=== PATIENT | female | born 1960 | race Caucasian/White ===

== ENCOUNTER 2022-04-18 10:45 | Inpatient (IN) | payer MEDICAID ==
[~2022-04-18] VITALS: Ht 162.6 cm; Wt 98.0 kg
[2022-04-18 11:05] VITALS: BP 100/57
--- NOTE | 2022-04-18 11:11 | NUR ---
PT AMB TO BED 3.
[2022-04-18] MEDS ORDERED: NACL 0.9% 1,000 ML IV SCH (12:45)
[2022-04-18] MEDS ORDERED: KETOROLAC 30 MG/ML VIAL IVP ONE (12:45)
--- NOTE | 2022-04-18 13:26 | NUR ---
Pt to CT via [facility].
[2022-04-18 13:40] LABS: BASOPHILS # (AUTO) 0.1 K/uL (0.00-0.22); BASOPHILS % (AUTO) 0.3 % (0.0-2.0); EOSINOPHILS % (AUTO) 0.2 % (0.0-4.0); HEMATOCRIT 38.9 % (36-48); HEMOGLOBIN 13.3 g/dL (12.0-16.0); LYMPHOCYTES % (AUTO) 5.2 % (20.5-51.1); MEAN CORPUSCULAR HEMOGLOBIN 30 pg (27-31); MEAN CORPUSCULAR HGB CONC 34 g/dL (33-37); MEAN CORPUSCULAR VOLUME 87.4 fL (80-94); MONOCYTES # (AUTO) 0.9 K/uL (0.8-1.0); MONOCYTES % (AUTO) 4.5 % (1.7-9.3); NEUTROPHILS # (AUTO) 17.9 K/uL (1.8-7.7); NEUTROPHILS % (AUTO) 89.8 % (42.2-75.2); PLATELET COUNT (AUTO) 243 K/uL (140-450); RED BLOOD CELL COUNT(AUTO) 4.45 MIL/uL (4.20-5.40); RED CELL DISTRIBUTION WIDTH 13.4 % (11.6-13.7); WHITE BLOOD COUNT (AUTO) 19.9 K/uL (4.8-10.8)
[2022-04-18] MEDS ORDERED: metroNIDAZOLE 500 MG/NS PREMIX 100 ML IV ONE (14:20)
[2022-04-18] MEDS ORDERED: LEVOFLOXACIN 500 MG/D5W PREMIX 100 ML IV ONE (14:20)
[2022-04-18 14:44] LABS: APPEARANCE,URINE CLEAR (CLEAR); BILIRUBIN,URINE NEGATIVE (NEGATIVE); BLOOD, URINE 1+ (NEGATIVE); COLOR,URINE YELLOW (YELLOW); LEUKOCYTE ESTERASE ,URINE NEGATIVE (NEGATIVE); NITRITE, URINE NEGATIVE (NEGATIVE); UGLUCOSE NEGATIVE (NEGATIVE)
[2022-04-18 15:34] LABS: ALBUMIN 3.4 g/dL (3.4-5.0); ANION GAP 19.8 (8-16); CARBON DIOXIDE 18.6 mmol/L (21-32); CREATININE 0.9 mg/dL (0.6-1.3); POTASSIUM 3.4 mmol/L (3.5-5.1); TOTAL BILIRUBIN 0.6 mg/dL (0.0-1.0)
[2022-04-18] MEDS ORDERED: DEXT 5% /NACL 0.9% 1,000 ML IV ONE ×2 (16:00→16:35)
[2022-04-18] MEDS ORDERED: DOCUSATE SODIUM 100 MG GELCAP PO PRN (16:30)
[2022-04-18] MEDS ORDERED: MORPHINE SULFATE 2 MG/ML SYR IVP PRN (16:30)
[2022-04-18] MEDS ORDERED: ACETAMINOPHEN 325 MG TAB PO PRN (16:30)
[2022-04-18] MEDS ORDERED: ZOLPIDEM 5 MG TAB PO PRN (16:30)
[2022-04-18] MEDS ORDERED: guaiFENesin DM 200/20 MG-10 ML 10 ML UDC PO PRN (16:30)
[2022-04-18] MEDS ORDERED: NACL 0.9% 1,500 ML IV SCH (16:35)
[2022-04-18 16:40] LABS: RBC,URINE 0-5 /HPF (0-5); WBC,URINE NONE SEEN /HPF (0-5)
--- NOTE | 2022-04-18 16:56 | NUR ---
Note undone in [facility] - 04/18/22 at 1723 by [email or web address] Pt report given to SELMA AVILES. PATIENT TRANSFERRED TO ROOM 125 B. PATIENT IS AAOX4, NAD NOTED AT THIS TIME FLUIDS D5NS0.9 INFUSIN. PATIENT BELONGINGS ( CLOTHES WHITE PHOTOGRAPHIC LABORATORY SUPERVISOR HAVE BEEN PLACED IN A BELONGING BAG. PATIENT HAS HER RED CELL PHONE IN HAND. DANNA SON IS AT THE BEDSIDE Transfer of care at this time. Addendum: 04/18/22 at 1723 by [email or web address] Amendment undone in [facility] - 04/18/22 at 1723 by [email or web address] BEDSIDE REPORT GIVEN TO LAST AVILES
--- NOTE | 2022-04-18 16:56 | NUR ---
BEDSIDE REPORT GIVEN TO STEVE AVILES. PATIENT TRANSFERRED TO ROOM 125 B. PATIENT IS AAOX4, NAD NOTED AT THIS TIME FLUIDS D5NS0.9 INFUSING 100 ML/HR. PATIENT BELONGINGS ( CLOTHES WHITE DISTRIBUTION TRANSFORMER ASSEMBLER HAVE BEEN PLACED IN A BELONGING BAG). PATIENT HAS HER RED CELL PHONE IN HAND. PATIENT SON IS AT THE BEDSIDE TRANSFER OF CARE AT THIS TIME.
[2022-04-18 17:05] LABS: AMYLASE 32 U/L (25-115); CHOL/HDL RATIO 3.6 (1-4.5); FREE T4 (FREE THYROXINE) 1.29 ng/dL (0.76-1.46); HDL CHOLESTEROL 43 mg/dL (40-60); LDL (CALC) 94 mg/dL (60-100); LIPASE 44 U/L (73-393); MAGNESIUM 2.1 mg/dL (1.8-2.4); THYROID STIMULATING HORMONE 0.75 uIU/mL (0.34-3.74); TRIGLYCERIDES 94 mg/dL (30-150)
[2022-04-18 17:18] LABS: PROTHROMBIN TIME 10.6 secs (10.8-13.4)
--- NOTE | 2022-04-18 19:30 | NUR ---
RECEIVED REPORT FROM DAY SHIFT NURSE ADOLFO. PATIENT IS RESTING WATCHING TV, ON ROOM AIR. AMBULATORY. COMPLAINED OF ABDOMINAL PAIN, WILL MEDICATE AFTER REPORT. IV ACCESS ON THE RAC INTACT AND PATENT. CALL LIGHT WITHIN REACH. SAFETY MEASURES ARE IN PLACE.
[2022-04-18] MEDS: HYDROcodone/APAP 7.5/325 MG 1 TAB PO PRN (19:46)
[2022-04-18 20:00] VITALS: BP 107/69
[2022-04-19] VITALS: BP 100/62
--- NOTE | 2022-04-19 00:41 | NUR ---
PATIENT AWAKE ALERT VERBALLY RESPONSIVE. NO S/S OF RESPIRATORY DISTRESS. BREATHING NORMAL NON LABORED. CALL LIGHT WITHIN REACH. NO COMPLAINTS OF PAIN.
[2022-04-19 04:00] VITALS: BP 104/66
[2022-04-19 05:32] LABS: BASOPHILS % (AUTO) 0.2 % (0.0-2.0); EOSINOPHILS # (AUTO) 0.1 K/uL (0-0.4); EOSINOPHILS % (AUTO) 0.7 % (0.0-4.0); HEMATOCRIT 33.9 % (36-48); HEMOGLOBIN 11.5 g/dL (12.0-16.0); MEAN CORPUSCULAR HEMOGLOBIN 30 pg (27-31); MEAN CORPUSCULAR HGB CONC 34 g/dL (33-37); MEAN CORPUSCULAR VOLUME 88.1 fL (80-94); MONOCYTES # (AUTO) 0.9 K/uL (0.8-1.0); MONOCYTES % (AUTO) 6.9 % (1.7-9.3); NEUTROPHILS % (AUTO) 84.2 % (42.2-75.2); PLATELET COUNT (AUTO) 208 K/uL (140-450); RED BLOOD CELL COUNT(AUTO) 3.85 MIL/uL (4.20-5.40); RED CELL DISTRIBUTION WIDTH 13.4 % (11.6-13.7)
[2022-04-19 06:17] LABS: CARBON DIOXIDE 24.4 mmol/L (21-32); CREATININE 0.9 mg/dL (0.6-1.3); POTASSIUM 3.4 mmol/L (3.5-5.1)
--- NOTE | 2022-04-19 07:27 | NUR ---
PATIENT STABLE. ENDORSED PATIENT TO DAY SHIFT NURSE FOR CONTINUITY OF CARE.
--- NOTE | 2022-04-19 07:28 | NUR ---
RECEIVED REPORT FROM HYDROPULPER NURSE FOR CONTINUITY OF CARE. PATIENT LYING DOWN, AWAKE, PAIN WITHIN TOLERABLE. ROOM AIR, IV SITE INTACT, PATENT ON SALINE LOCK. REVIEWED PLAN OF CARE WITH PATIENT. VERBALIZED UNDERSTANDING. SAFETY MEASURES IN PLACE, CALL LIGHT WITHIN REACH. WILL CONTINUE TO MONITOR.
[2022-04-19 08:00] VITALS: BP 119/77
[2022-04-19 08:08] LABS: T4 (THYROXINE) 9.2 ug/dL (4.5-12.0)
[2022-04-19] MEDS: PANTOPRAZOLE 40 MG TABEC PO SCH (09:00)
[2022-04-19] MEDS: LEVOFLOXACIN 750 MG/D5W PREMIX 150 ML IV SCH (09:40)
[2022-04-19] MEDS: HYDROcodone/APAP 7.5/325 MG 1 TAB PO PRN ×2 (09:44→18:00)
--- NOTE | 2022-04-19 09:53 | NUR ---
COMPLAINS OF ABDOMINAL PAIN, NORCO PO PRN GIVEN AT THIS TIME. OTHER SCHEDULED MEDICATIONS DUE GIVEN. WILL CONTINUE TO MONITOR.
--- NOTE | 2022-04-19 10:19 | NUR ---
PATIENT HAS BEEN SCREENED AND CATEGORIZED LOW NUTRITION RISK. PATIENT WILL BE SEEN WITHIN 7 DAYS OF ADMISSION. 04/25/22 REVIEWED BY CEASAR CESAR RD
[2022-04-19 12:00] VITALS: BP 103/62
--- NOTE | 2022-04-19 13:13 | NUR ---
DC PLANN[age] YRS OLD FEMALE PATIENT WAS ADMITTED FROM HOME WITH A DX OF DIVERTICULITIS W/PERFORATION. PATIENT PAS MEDICAL HISTORY HYPERTENSION. CT ABD SHOWED SIGMOID DIVERTICULITIS. ADMINISTERED IVF, IV ABX LEVAQUIN , KEPT PT NPO. CONSULTED WITH SURGEON DR SHELBY. DC PLAN TO GO HOME WHEN STABLE CM TO FOLLOW Addendum: 04/20/22 at 1322 by Janki Winston RN DC PLANNING: SEEN BY DR SHELBY SURGEON RECOMMENDED AND PATINT PREFERS NONOPERATIVE MANAGEMENT BOWEL REST CONTINUE IVF AND IV ABX. DR SHELBY DISCUSSED WITH PATIENT POSSIBLE NEED FOR SURGERY/SIGMOID COLECTOMY IF SEPSIS/PERITONITIS PERSISTS/WORSENS. DR SHELBY WILL ASK DR RASCON FOR COLORECTAL SURGEON TO MANAGE. CM TO FOLLOW
--- NOTE | 2022-04-19 15:55 | NUR ---
DC PLANNING SW MET WITH PATIENT AT BEDSIDE TO COMPLETE ASSESSMENT. PATIENT REPORTS RESIDING IN A SINGLE STORY HOME WITH HER SISTER AT THE ADDRESS LISTED ON FILE. PATIENT IDENTIFIES [facility]Y HOSKINS, SON, EMERGENCY CONTACT AND MDM. PATIENT DENIES HAVING AD IN PLACE AND ACCEPTED AD OFFERED BY SW. PATIENT REPORTS MEETING WITH PCP, DR. STEFAN XAVIER AT [facility] IN [place], NEEDED. PATIENT REPORTS LAST VISIT; 04/17. PT REPORTS MEDICATION COMPLIANCE AND DENIES BARRIERS IN ACCESS TO NEEDED MEDICATIONS. PATIENT REPORTS RECEIVING MEDICATION FROM [facility], WHEN NEEDED. PT REPORTS BEING INDEPENDENT IN ALL ACTIVITIES AND DENIES USE OF DME. PT COMPLETES ALL ADL'S INDEPENDENTLY. PT DENIES MH/SA HX. PATIENT REPORTS ADEQUATE FOOD IN THE HOME AND DENIES BARRIERS IN ACCESS TO FOOD. PT REPORTS DC PLAN IS TO RETURN HOME WITH SON PROVIDING TRANSPORTATION, WHEN MEDICALLY STABLE. SW INQUIRED ON RESOURCES NEEDED, PT DECLINED. PT DENIES HX OF DIABETES, DIALYSIS TX, HH SERVICES AND SNF PLACEMENT. Addendum: 04/19/22 at 1557 by Kirby GUSTAFSON Amended: Links added.
[2022-04-19 16:00] VITALS: BP 114/65
--- NOTE | 2022-04-19 18:01 | NUR ---
COMPLAINS OF ABDOMINAL PAIN, NORCO PRN GIVEN AT THIS TIME. WILL CONTINUE TO MONITOR.
--- NOTE | 2022-04-19 19:30 | NUR ---
GAVE REPORT TO PRIOR AUTHORIZATION NURSE NURSE FOR CONTINUITY OF CARE. PATIENT IN STABLE CONDITION.
[2022-04-19 20:00] VITALS: BP 128/76
[2022-04-19] MEDS: POTASSIUM CHLORIDE 10 MEQ TABER PO PRN (20:28)
--- NOTE | 2022-04-19 20:29 | NUR ---
SERUM K+ 3.4 - WILL MEDICATE ORDERED , WILL CONT. TO MONITOR . Addendum: 04/19/22 at 2030 by Yumiko Mann RN OFFER APPLE JIUCE , JELL O , AND FRESH WATER , BUT REFUSE .
[2022-04-20] VITALS: BP 128/67
--- NOTE | 2022-04-20 00:40 | NUR ---
C/O VOMITING , BP 128/78 , CO 93 , RR 20 , O2 SAT 98 % - WILL MEDICATE , CALL LIGHT WITHIN REACH , WILL CONT. TO MONITOR .
[2022-04-20] MEDS: ONDANSETRON 4 MG/2 ML VIAL IM/IVP PRN ×4 (00:50→22:46)
[2022-04-20 04:00] VITALS: BP 125/82
--- NOTE | 2022-04-20 05:30 | NUR ---
C/O VOMITING , ABDL. PAIN SHE RATES THE PAIN 10/18 . BP 138/85 , ME 90 , RR20 , 02 SAT 98% - WILL MEDICATE , WILL CONT. TO MONITOR , CALL LIGT WITHIN REACH , PER PT HER U.O IS CARISA IN COLOR - WILL ENDORSE .
[2022-04-20] MEDS: HYDROcodone/APAP 7.5/325 MG 1 TAB PO PRN (05:38)
[2022-04-20 06:28] LABS: BASOPHILS % (AUTO) 0.1 % (0.0-2.0); EOSINOPHILS % (AUTO) 0.4 % (0.0-4.0); HEMATOCRIT 37.3 % (36-48); HEMOGLOBIN 12.5 g/dL (12.0-16.0); LYMPHOCYTES # (AUTO) 0.9 K/uL (2.5-16.5); MEAN CORPUSCULAR HEMOGLOBIN 30 pg (27-31); MEAN CORPUSCULAR HGB CONC 33 g/dL (33-37); MEAN CORPUSCULAR VOLUME 88.3 fL (80-94); MONOCYTES # (AUTO) 0.8 K/uL (0.8-1.0); MONOCYTES % (AUTO) 7.1 % (1.7-9.3); NEUTROPHILS # (AUTO) 9.9 K/uL (1.8-7.7); NEUTROPHILS % (AUTO) 84.4 % (42.2-75.2); PLATELET COUNT (AUTO) 266 K/uL (140-450); RED BLOOD CELL COUNT(AUTO) 4.23 MIL/uL (4.20-5.40); WHITE BLOOD COUNT (AUTO) 11.7 K/uL (4.8-10.8)
[2022-04-20 06:32] LABS: ANION GAP 10.9 (8-16); CARBON DIOXIDE 26.9 mmol/L (21-32); CREATININE 0.8 mg/dL (0.6-1.3); POTASSIUM 3.8 mmol/L (3.5-5.1)
--- NOTE | 2022-04-20 07:45 | NUR ---
ENDORSED TO KEILY , PT VOMITED 3X AND HAD ABDL. AT AROUND 5AM - I TOLD HER SHE HAVE TO GIVE AN UPDATE GI DOCTOR ABOUT THIS MATTER . ENDORSEDPT FOR CONT. OF CARE .
[2022-04-20 08:00] VITALS: BP 115/83
--- NOTE | 2022-04-20 08:00 | NUR ---
ASSESSMENT COMPLETED PLAN OF CARE REVIEWED DENIES PAIN AT THIS TIME CALL LIGHT IN REACH WILL CONTINUE TO MONITOR AND ASSESS
[2022-04-20] MEDS: PANTOPRAZOLE 40 MG TABEC PO SCH (08:35)
[2022-04-20] MEDS: LEVOFLOXACIN 750 MG/D5W PREMIX 150 ML IV SCH (08:35)
[2022-04-20 12:00] VITALS: BP 110/79
--- NOTE | 2022-04-20 15:43 | NUR ---
PT WITH EPISODE OF VOMITTING AFTER LUNC MD RASCON MADE AWARE NO NEW ORDERS AND PT REFUSED ZOFRAN AFTER EPISODE NO PT COMPLAINS OF NAUSEA ZOFRAN GIVEN AT THIS TIME NO DISTRESS WILL CONTINUE TO MONITOR AND ASSESS
[2022-04-20 16:00] VITALS: BP 122/82
--- NOTE | 2022-04-20 19:25 | NUR ---
RECEIVED REPORT FROM DAY SHIFT NURSE/ PATIENT AWAKE, ALERT VERBALLY RESPONSIVE. NO SOB NOTED ON ROOM AIR. NO COMPLAINTS OF PAIN AT THIS TIME. CALL LIGHT WITHIN REACH. SAFETY MEASURES IN PLACE.
[2022-04-20 20:00] VITALS: BP 132/93
--- NOTE | 2022-04-20 22:46 | NUR ---
PATIENT COMPLAINED OF NAUSEA, MEDICATED .
[2022-04-21] VITALS: BP 152/95
--- NOTE | 2022-04-21 01:40 | NUR ---
PATIENT SLEEPING, NO S/S OF RESPIRATORY DISTRESS. BREATHING NORMAL. CALL LIGHT WITHIN REACH.
[2022-04-21 04:00] VITALS: BP 131/90
--- NOTE | 2022-04-21 05:10 | NUR ---
PATIENT AWAKE, NO VOMITING NOTED/REPORTED AT THIS TIME. CALL LIGHT WITHIN REACH.
[2022-04-21 06:00] LABS: BASOPHILS % (AUTO) 0.2 % (0.0-2.0); EOSINOPHILS # (AUTO) 0.1 K/uL (0-0.4); EOSINOPHILS % (AUTO) 1.2 % (0.0-4.0); HEMATOCRIT 37.1 % (36-48); HEMOGLOBIN 12.6 g/dL (12.0-16.0); LYMPHOCYTES # (AUTO) 1.2 K/uL (2.5-16.5); MEAN CORPUSCULAR HEMOGLOBIN 30 pg (27-31); MEAN CORPUSCULAR HGB CONC 34 g/dL (33-37); MEAN CORPUSCULAR VOLUME 88.3 fL (80-94); MONOCYTES % (AUTO) 8.8 % (1.7-9.3); NEUTROPHILS # (AUTO) 8.5 K/uL (1.8-7.7); NEUTROPHILS % (AUTO) 78.8 % (42.2-75.2); PLATELET COUNT (AUTO) 290 K/uL (140-450); RED CELL DISTRIBUTION WIDTH 12.8 % (11.6-13.7); WHITE BLOOD COUNT (AUTO) 10.8 K/uL (4.8-10.8)
[2022-04-21 06:02] LABS: ANION GAP 12.6 (8-16); CARBON DIOXIDE 23.8 mmol/L (21-32); CREATININE 0.7 mg/dL (0.6-1.3); POTASSIUM 3.4 mmol/L (3.5-5.1)
--- NOTE | 2022-04-21 07:14 | NUR ---
GAVE REPORT TO MORNING SHIFT NURSE MACARIO FOR CONTINUITY OF CARE.
--- NOTE | 2022-04-21 07:20 | NUR ---
ENDORSED PT TO NIGHTSHIFT TRACI PHAN. PT IN STABLE CONDITION
--- NOTE | 2022-04-21 07:25 | NUR ---
RECEIVED BEDSIDE REPORT FROM TRACI PHAN FOR CONTINUITY OF CARE. PT IS A&OX4. PT IS RESTING W/NO S/S OF DISTRESS. PT IS ON ROOM AIR, SATING AT 96%. PT HAS 20G IV ON THE RIGHT AC WHICH IS PATENT AND INTACT. BED IS IN LOWEST POSITION, CALL LIGHT WITHIN REACH.
[2022-04-21 08:00] VITALS: BP 135/98
[2022-04-21] MEDS: PANTOPRAZOLE 40 MG TABEC PO SCH (09:09)
[2022-04-21] MEDS: LEVOFLOXACIN 750 MG/D5W PREMIX 150 ML IV SCH (09:09)
[2022-04-21] MEDS: lisinopriL 20 MG TAB PO SCH (09:25)
[2022-04-21] MEDS: DOCUSATE SODIUM 100 MG GELCAP PO SCH ×2 (10:52→21:14)
[2022-04-21] MEDS: ONDANSETRON 4 MG/2 ML VIAL IM/IVP PRN (10:53)
[2022-04-21 12:00] VITALS: BP 111/80
[2022-04-21] MEDS: POTASSIUM CHLORIDE 10 MEQ TABER PO PRN (12:22)
[2022-04-21] MEDS: NACL 0.9% 1,000 ML IV SCH (13:27)
[2022-04-21 16:00] VITALS: BP 129/83
--- NOTE | 2022-04-21 19:20 | NUR ---
ENDORSED PT TO NIGHTSHIFT TRACI PHAN. PT IN STABLE CONDITION
[2022-04-21 20:00] VITALS: BP 128/84
--- NOTE | 2022-04-21 22:37 | NUR ---
PATIENT AWAKE ALERT ON ROOM AIR. NO SOB. RESPIRATION REGULAR NON LABORED. IVF NS RUNNING AT 75MLS/HR. REMINDED PATIENT TO BE NPO POST MIDNIGHT WITH UNDERSTANDING. CALL LIGHT WITHIN REACH. ALL SAFETY PRECAUTIONS ARE IN PLACE.
[2022-04-22] VITALS: BP 126/80
--- NOTE | 2022-04-22 02:01 | NUR ---
CHECK ON PATIENT, PT SLEEPING ,NO DISTRESS NOTED. CALL LIGHT WITHIN REACH.
[2022-04-22] MEDS: NACL 0.9% 1,000 ML IV SCH ×2 (02:20→08:50)
[2022-04-22 04:00] VITALS: BP 142/86
[2022-04-22 05:36] LABS: BASOPHILS % (AUTO) 0.4 % (0.0-2.0); EOSINOPHILS # (AUTO) 0.1 K/uL (0-0.4); EOSINOPHILS % (AUTO) 1.1 % (0.0-4.0); HEMATOCRIT 35.4 % (36-48); HEMOGLOBIN 11.6 g/dL (12.0-16.0); LYMPHOCYTES # (AUTO) 1.6 K/uL (2.5-16.5); LYMPHOCYTES % (AUTO) 16.5 % (20.5-51.1); MEAN CORPUSCULAR HEMOGLOBIN 29 pg (27-31); MEAN CORPUSCULAR HGB CONC 33 g/dL (33-37); MEAN CORPUSCULAR VOLUME 88.5 fL (80-94); MONOCYTES % (AUTO) 10.3 % (1.7-9.3); NEUTROPHILS # (AUTO) 6.9 K/uL (1.8-7.7); NEUTROPHILS % (AUTO) 71.7 % (42.2-75.2); PLATELET COUNT (AUTO) 290 K/uL (140-450); RED CELL DISTRIBUTION WIDTH 13.2 % (11.6-13.7); WHITE BLOOD COUNT (AUTO) 9.6 K/uL (4.8-10.8)
[2022-04-22 06:22] LABS: ANION GAP 9.1 (8-16); CARBON DIOXIDE 26.6 mmol/L (21-32); CREATININE 0.7 mg/dL (0.6-1.3); POTASSIUM 3.7 mmol/L (3.5-5.1)
[2022-04-22 08:00] VITALS: BP 177/86
[2022-04-22] MEDS: PANTOPRAZOLE 40 MG TABEC PO SCH (08:41)
[2022-04-22] MEDS: LEVOFLOXACIN 750 MG/D5W PREMIX 150 ML IV SCH (08:41)
[2022-04-22] MEDS: lisinopriL 20 MG TAB PO SCH (08:42)
[2022-04-22] MEDS: DOCUSATE SODIUM 100 MG GELCAP PO SCH ×2 (08:44→21:37)
[2022-04-22 12:00] VITALS: BP 178/86
[2022-04-22 16:00] VITALS: BP 142/86
[2022-04-22] MEDS: ONDANSETRON 4 MG/2 ML VIAL IM/IVP PRN (17:32)
[2022-04-22 20:00] VITALS: BP 118/82
--- NOTE | 2022-04-22 20:08 | NUR ---
PATIENT AWAKE, ALERT AMBULATING IN THE ROOM. ON ROOM AIR. NO SOB. NO COMPLAINTS OF PAIN AT THIS TIME. ATTENDED TO HER NEEDS. CALL LIGHT WITHIN REACH. SAFETY MEASURES IN PLACE. VISITOR AT BEDSIDE.
--- NOTE | 2022-04-22 21:37 | NUR ---
ADMINISTERED SCHEDULED MEDICATION.
[2022-04-23] VITALS: BP 116/79
[2022-04-23 04:00] VITALS: BP 141/84
[2022-04-23] MEDS: NACL 0.9% 1,000 ML IV SCH (05:00)
[2022-04-23 06:29] LABS: ANION GAP 7.3 (8-16); CARBON DIOXIDE 25.3 mmol/L (21-32); CREATININE 0.7 mg/dL (0.6-1.3); POTASSIUM 3.6 mmol/L (3.5-5.1)
[2022-04-23 06:31] LABS: BASOPHILS # (AUTO) 0.1 K/uL (0.00-0.22); BASOPHILS % (AUTO) 0.5 % (0.0-2.0); EOSINOPHILS # (AUTO) 0.2 K/uL (0-0.4); EOSINOPHILS % (AUTO) 1.7 % (0.0-4.0); HEMATOCRIT 34.5 % (36-48); HEMOGLOBIN 11.5 g/dL (12.0-16.0); LYMPHOCYTES # (AUTO) 1.7 K/uL (2.5-16.5); MEAN CORPUSCULAR HEMOGLOBIN 29 pg (27-31); MEAN CORPUSCULAR HGB CONC 33 g/dL (33-37); MEAN CORPUSCULAR VOLUME 88.6 fL (80-94); MONOCYTES # (AUTO) 0.8 K/uL (0.8-1.0); MONOCYTES % (AUTO) 7.9 % (1.7-9.3); NEUTROPHILS # (AUTO) 7.3 K/uL (1.8-7.7); NEUTROPHILS % (AUTO) 72.9 % (42.2-75.2); PLATELET COUNT (AUTO) 305 K/uL (140-450); RED CELL DISTRIBUTION WIDTH 12.8 % (11.6-13.7); WHITE BLOOD COUNT (AUTO) 10.1 K/uL (4.8-10.8)
--- NOTE | 2022-04-23 07:19 | NUR ---
GAVE REPORT TO DAY SHIFT NURSE LILA FOR CONTINUITY OF CARE.
[2022-04-23 08:00] VITALS: BP 155/86
[2022-04-23] MEDS: DOCUSATE SODIUM 100 MG GELCAP PO SCH ×2 (09:00→21:00)
[2022-04-23] MEDS: LEVOFLOXACIN 750 MG/D5W PREMIX 150 ML IV SCH (09:23)
[2022-04-23] MEDS: PANTOPRAZOLE 40 MG TABEC PO SCH (09:25)
[2022-04-23] MEDS: lisinopriL 20 MG TAB PO SCH (09:26)
[2022-04-23 12:00] VITALS: BP 153/80
[2022-04-23 16:00] VITALS: BP 147/80
[2022-04-23 20:00] VITALS: BP 118/67
--- NOTE | 2022-04-23 20:00 | NUR ---
ROUNDS , DENIES PAIN , REMINDS HER SHE IS ON CLEAR LIQ DIET . VERBALIZES UNDERSTANDING . WILL CONT. TO MONITOR
[2022-04-24] VITALS: BP 118/67
--- NOTE | 2022-04-24 | NUR ---
SLEEPING , AROUSABLE BY SOUNDS AND TOUCH . NO COMPLAIN MADE , WILL CONT. TO MONITOR.
[2022-04-24 04:00] VITALS: BP 122/60
--- NOTE | 2022-04-24 04:00 | NUR ---
ROUNDS , NO COMPLAIN MADE , CALL LIGHT WITHIN REACH .
[2022-04-24 06:01] LABS: BASOPHILS % (AUTO) 0.4 % (0.0-2.0); EOSINOPHILS # (AUTO) 0.1 K/uL (0-0.4); EOSINOPHILS % (AUTO) 1.5 % (0.0-4.0); HEMOGLOBIN 11.4 g/dL (12.0-16.0); LYMPHOCYTES # (AUTO) 1.7 K/uL (2.5-16.5); LYMPHOCYTES % (AUTO) 18.1 % (20.5-51.1); MEAN CORPUSCULAR HEMOGLOBIN 30 pg (27-31); MEAN CORPUSCULAR HGB CONC 34 g/dL (33-37); MEAN CORPUSCULAR VOLUME 87.6 fL (80-94); MONOCYTES # (AUTO) 0.7 K/uL (0.8-1.0); MONOCYTES % (AUTO) 7.8 % (1.7-9.3); NEUTROPHILS # (AUTO) 6.7 K/uL (1.8-7.7); NEUTROPHILS % (AUTO) 72.2 % (42.2-75.2); PLATELET COUNT (AUTO) 307 K/uL (140-450); RED BLOOD CELL COUNT(AUTO) 3.88 MIL/uL (4.20-5.40); RED CELL DISTRIBUTION WIDTH 12.9 % (11.6-13.7); WHITE BLOOD COUNT (AUTO) 9.3 K/uL (4.8-10.8)
--- NOTE | 2022-04-24 06:43 | NUR ---
DENIES ABDL .PAIN , DENIES VOMITING , PER PT SHE HAD 2 WATERY STOOL 1 LAST NIGHT AND 1 AT 6AM - WILL ENDORSE .
[2022-04-24 06:56] LABS: ANION GAP 11.9 (8-16); CARBON DIOXIDE 26.7 mmol/L (21-32); CREATININE 0.7 mg/dL (0.6-1.3); POTASSIUM 3.6 mmol/L (3.5-5.1)
--- NOTE | 2022-04-24 07:15 | NUR ---
RECEIVED REPORT FROM MARSH BUGGY OPERATOR NURSE KYLEIGH FOR CONTINUITY OF CARE. NO SIGNS OF DISTRESS OR LABORED BREATHING AT TIS TIME. PT IS A&OX4, ON RA, A SOFT DIET DUE TO HER DIVERTICULITIS, AMBULATES ON OWN, AND SKIN INTACT. PT HAS A 22G IN HE RAC THAT IS INTACT, PATENT AND SALINE LOCKED AT THIS TIME. VITALS AND LABS ARE WNL FOR PT. CALL LIGHT WITHIN REACH, TWO SIDE RAILS UP, BED IN LOW POSITION, AND ALL SAFETY MEASURE MEET AT THIS TIME. WILL CONTINUE TO MONITOR.
--- NOTE | 2022-04-24 07:33 | NUR ---
PER DR. MED RASCON SHIFT CLEAR LIQ DIET TO FULL LIQ DIET TODAY . CONT. TO MONITOR ABDL. PAIN AND VOMITING .IF PT. TOLERATED THE FULL LIQ. DIET , SHE MAY HAVE SOFT DIET PETRA. , BUT LET ME KNOW FIRST TOLD BY DR. MED RASCON - ENDORSE TO TRACI HOANG AND TRACI HOANG VERBALIZES UNDERSTANDING .
[2022-04-24 08:00] VITALS: BP 131/82
[2022-04-24] MEDS: lisinopriL 20 MG TAB PO SCH (08:55)
[2022-04-24] MEDS: PANTOPRAZOLE 40 MG TABEC PO SCH (08:55)
[2022-04-24] MEDS: DOCUSATE SODIUM 100 MG GELCAP PO SCH (08:56)
[2022-04-24] MEDS ORDERED: LISI20TA29 PO (13:49)
[2022-04-24] MEDS ORDERED: PANT40EC56 PO (13:49)
[2022-04-24] MEDS ORDERED: DOCU-299 PO (13:49)
[2022-04-24 14:27] VITALS: BP 131/82
--- NOTE | 2022-04-24 15:12 | NUR ---
PT IS STABLE ON DC. IV AND ID BAND REMOVED. PT AMBULATED TO THE FRONT LOBBY.
== END 2022-04-24 15:05 | disposition home or self-care (01) | DRG 720 ==
LOC: MED 10:45 → MTU 16:18 → MMU 17:00 → MTU 04-22 17:53
PROVIDERS: ADMIT Family Medicine; ATTEND Family Medicine
DX: A41.9 Sepsis, unspecified organism (principal); K56.609 Unspecified intestinal obstruction, unspecified as to partial versus complete obstruction; K57.20 Diverticulitis of large intestine with perforation and abscess without bleeding; E83.51 Hypocalcemia; E86.0 Dehydration; I10 Essential (primary) hypertension; E87.6 Hypokalemia; Z20.822 Contact with and (suspected) exposure to COVID-19; Z90.710 Acquired absence of both cervix and uterus
CPT/HCPCS: 36415; 71045; 74018; 80048; 80053; 81001; 82150; 83036; 83605; 83690; 83735; 83880; 84100; 84436; 84439; 84443; 84479; 84484; 85025; 85610; 85730; 87040; 87081; 87086; 96361; 96365; 96375; 99285; J1885; J1956; J2405; J3490; Q0092

== ENCOUNTER 2022-07-18 07:05 | Day surgery (SDC) | payer MEDICAID ==
[~2022-07-18] VITALS: Ht 165.1 cm; Wt 95.3 kg
[~2022-07-18 07:05] MED LIST: DOCU-299 PO; LISI20TA29 PO; PANT40EC56 PO
[2022-07-18] MEDS ORDERED: LIDOCAINE 2% 100 MG/5 ML UJET TP ONE (08:49)
[2022-07-18] MEDS ORDERED: fentaNYL citrate 0.05 MG/ML VIAL ONE (08:49)
[2022-07-18] MEDS ORDERED: diphenhydrAMINE 50 MG/ML VIAL ONE (08:49)
[2022-07-18] MEDS ORDERED: MIDAZOLAM 5 MG/5 ML VIAL ONE (08:49)
[2022-07-18] MEDS ORDERED: fentaNYL citrate 0.05 MG/ML VIAL IVP ONE (12:30)
[2022-07-18] MEDS ORDERED: MIDAZOLAM 2 MG/2 ML VIAL IVP ONE (12:30)
== END 2022-07-18 11:10 | disposition home or self-care (01) ==
LOC: MMU 07:05 → MDS 07:05
PROVIDERS: ATTEND Surgery
DX: Z12.11 Encounter for screening for malignant neoplasm of colon (principal); D12.4 Benign neoplasm of descending colon; K57.32 Diverticulitis of large intestine without perforation or abscess without bleeding; Z20.822 Contact with and (suspected) exposure to COVID-19
CPT/HCPCS: 45380; 45385; 87426; 88305; J2250; J3010; J1200